=== PATIENT | female | born 1960 | race Two or more races ===

== ENCOUNTER 2023-11-21 09:34 | Day surgery (SDC) | payer BC, MEDICAID ==
[2023-11-21] VITALS (42 sets, daily range): BP systolic 97–139; BP diastolic 53–106; PULSE 67–96; RESP 11–19; TEMP 98–98.4; O2SAT 90–100
[~2023-11-21] VITALS: Ht 157.5 cm; Wt 82.6 kg
[2023-11-21] MEDS: famotidine 20mg tablet PO ONE (05:30)
[2023-11-21] MEDS: cefazolin 2gm/D5W 100mL 100 ML IV ONE (05:30)
[~2023-11-21 09:34] MED LIST: ALBU18HF2 INH; ASPART FLEX SQ; INSU100V41 SUBCUT; LEVO150C4 PO; LOSA50TA64 PO; METF-438 PO; SEMA14TA2 PO; ringers solution, lacted 1,000 ML IV SCH
[2023-11-21 10:52] LABS: BASOPHILS # (AUTO) 0.1 X10'3 (0-0.2); BASOPHILS % (AUTO) 0.8 % (0-1); EOSINOPHILS # (AUTO) 0.6 X10'3 (0-0.9); EOSINOPHILS % (AUTO) 9.2 % (0-6); LYMPHOCYTES # (AUTO) 1.7 X10'3 (1.1-4.8); LYMPHOCYTES % (AUTO) 24.5 % (21-51); MEAN CORPUSCULAR HEMOGLOBIN 27.4 PG (27.0-31.0); MEAN CORPUSCULAR HGB CONC 32.7 g/dL (33.0-36.5); MEAN CORPUSCULAR VOLUME 83.9 FL (78-98); MEAN PLATELET VOLUME 8.5 FL (7.4-10.4); MONOCYTES # (AUTO) 0.4 X10'3 (0-0.9); MONOCYTES % (AUTO) 5.5 % (2-12); NEUTROPHILS # (AUTO) 4.1 X10'3 (1.8-7.7); PRE OP HEMATOCRIT 34.5 % (35.0-45.0); PRE OP HEMOGLOBIN 11.3 g/dL (12.0-16.0); PRE OP PLATELET COUNT 359 X10'3 (140-440); PRE OP WHITE BLOOD COUNT 6.9 10'3 (4.8-10.8); RED BLOOD COUNT 4.11 X10'6 (4.20-5.60); RED CELL DISTRIBUTION WIDTH 14.8 % (11.5-14.5)
[2023-11-21 11:06] LABS: ALBUMIN 3.3 G/DL (3.4-5.0); ALKALINE PHOSPHATASE 80 IU/L (46-116); BLOOD UREA NITROGEN 14 MG/DL (7-18); BUN/CREATININE RATIO 15.2 (10.0-20.0); CALCIUM 8.8 MG/DL (8.5-10.1); CHLORIDE 105 MMOL/L (99-107); CREATININE 0.92 MG/DL (0.40-0.90); PRE OP ALT 18 U/L (30-65); PRE OP ANION GAP 6 (8-16); PRE OP AST 19 U/L (10-37); PRE OP BILIRUB, TOTAL 0.4 MG/DL (0.0-1.0); PRE OP GLUCOSE 144 MG/DL (70-104); PRE OP POTASSIUM 4.2 MMOL/L (3.4-5.1); PRE OP SODIUM 138 MMOL/L (135-145); TOTAL CARBON DIOXIDE 27.3 MMOL/L (24-32); TOTAL PROTEIN 6.6 G/DL (6.4-8.2); eCRCL 50 ML/MIN; eGFR 62 ML/MIN
[2023-11-21] MEDS ORDERED: labetalol 20mg/4ml (5mg/ml) syringe IV PRN (11:10)
[2023-11-21] MEDS ORDERED: ondansetron/PF 4mg/2ml inj IV PRN (11:10)
[2023-11-21] MEDS ORDERED: proCHLORperazine 10 MG/2 ml inj IV PRN (11:10)
[2023-11-21] MEDS ORDERED: meperidine/PF 25mg/ml syringe IV PRN ×2 (11:10)
[2023-11-21] MEDS ORDERED: enalaprilat dihydrate 2.5mg/2ml vial IV PRN (11:10)
[2023-11-21] MEDS ORDERED: sevoflurane 250ml liquid IH ONE (12:02)
[2023-11-21] MEDS: ipratropium/albuterol 3ml nebule IH ONE (12:03)
[2023-11-21] MEDS ORDERED: fentaNYL/PF 50MCG/1 ML 2ML syringe ONE ×2 (12:14→13:45)
[2023-11-21] MEDS ORDERED: MIDAZolam 1 MG/ML 5ML VIAL ONE (12:15)
[2023-11-21] MEDS ORDERED: ROPIVAcaine 0.5% (5mg/ml) 30ml vial ONE (12:17)
[2023-11-21] MEDS ORDERED: ondansetron/PF 4mg/2ml inj ONE (13:42)
[2023-11-21] MEDS ORDERED: LIDOcaine 1%/PF 5ML 10 MG/ML VIAL ONE (13:42)
[2023-11-21] MEDS ORDERED: dexamethasone sod phosphate 4mg/ml inj. ONE (13:42)
[2023-11-21] MEDS ORDERED: propofol inj 20 ML IV ONE (13:42)
[2023-11-21] MEDS: meperidine/PF 25mg/ml syringe IV PRN (14:52)
[2023-11-21] MEDS: oxyCODONE/APAP 10/325mg tablet PO ONE (15:11)
[2023-11-21] MEDS ORDERED: HYDROmorphone/PF 0.2 MG/ML SYRINGE IV PRN ×2 (15:35→20:55)
[2023-11-21] MEDS: ketorolac tromethamine 15mg/ml inj. IV ONE (15:40)
[2023-11-21] MEDS: acetaminophen 1,000mg/100ml IV 100 ML IV ONE (15:40)
[2023-11-21] MEDS: HYDROmorphone/PF 0.2 MG/ML SYRINGE IV PRN (15:45)
[2023-11-21] MEDS: LORazepam 2 mg/ml vial IV PRN (18:01)
[2023-11-21] MEDS ORDERED: albuterol 2.5 MG/3 ML nebule NEB PRN (22:15)
[2023-11-21] MEDS: metFORMIN 500mg tablet PO SCH (22:37)
[2023-11-21] MEDS: oxyCODONE/APAP 10/325mg tablet PO PRN (23:41)
[2023-11-21] MEDS: ringers solution, lacted 1,000 ML IV SCH (23:47)
[2023-11-21] MEDS: BUPIVAcaine 2.5mg/ml inj 50ml vial (contains preservative) ONE (23:48)
[2023-11-22] VITALS (8 sets, daily range): BP systolic 120–128; BP diastolic 60–72; PULSE 65–90; RESP 14–18; TEMP 97.4–98.3; O2SAT 91–97
[2023-11-22] MEDS: SEMAGLUTIDE 14 MG PO SCH (08:00)
[2023-11-22] MEDS: levoTHYROXINE 75mcg tablet PO SCH (08:22)
[2023-11-22] MEDS: proCHLORperazine 10 MG/2 ml inj IV PRN (08:27)
[2023-11-22] MEDS: insulin Lispro (HumaLOG) vial - multi-dose SQ ONE (09:14)
[2023-11-22] MEDS ORDERED: losartan 50mg tablet PO SCH (21:00)
[2023-11-22] MEDS ORDERED: INSULIN DEGLUDEC 100 UNIT/ML SQ SCH (21:00)
== END 2023-11-22 13:15 | disposition home or self-care (01) ==
LOC: PAS 09:34 → ORTHO 4S 21:02 → PAS 11-22 13:15
PROVIDERS: ATTEND Orthopaedic Surgery
DX: T84.84XA Pain due to internal orthopedic prosthetic devices, implants and grafts, initial encounter (principal); G89.18 Other acute postprocedural pain; I10 Essential (primary) hypertension; E11.9 Type 2 diabetes mellitus without complications; J45.909 Unspecified asthma, uncomplicated; E66.9 Obesity, unspecified; Z79.890 Hormone replacement therapy; Z79.84 Long term (current) use of oral hypoglycemic drugs; Z79.899 Other long term (current) drug therapy; Z90.49 Acquired absence of other specified parts of digestive tract; Z90.710 Acquired absence of both cervix and uterus; Z98.890 Other specified postprocedural states; Z88.1 Allergy status to other antibiotic agents; Z88.5 Allergy status to narcotic agent; X58.XXXA Exposure to other specified factors, initial encounter; Y93.89 Activity, other specified; Y92.89 Other specified places as the place of occurrence of the external cause; Y99.8 Other external cause status
CPT/HCPCS: 20680; 36415; 64445; 80053; 82948; 84443; 85025; 87081; 93005; 94640; 94760; 97116; 97161; 97530; J0131; J0690; J0780; J1100; J1170; J1885; J2060; J2175; J2250; J2405; J2704; J2795; J3010; J3490; J7030; J7120; Z7506; Z7508; Z7512; A4215; A4618; A6449; A7000; G0378; J1815